=== PATIENT | female | born 1980 | race Caucasian/White ===

== ENCOUNTER → 2017-09-16 | Outpatient (CLI) | payer BC ==
[2017-09-16 10:42] LABS: BASO # 0.1 10^3/uL (0.0-0.2); BASO % 0.7 % (0.0-1.0); EOS # 0.3 10^3/uL (0.0-0.50); EOS % 3.2 % (0.0-3.0); IMMATURE GRANULOCYTE % 0.2 % (0-0); LYMPH # 2.8 10^3/uL (1.5-4.5); MEAN CORPUSCULAR HEMOGLOBIN 31.3 pg (27.0-33.0); MEAN CORPUSCULAR HGB CONC 34.3 g/dl (32.0-36.5); MEAN CORPUSCULAR VOLUME 91.3 fl (80.0-96.0); MONO # 0.5 10^3/uL (0.0-0.8); MONO % 5.4 % (0.0-5.0); NEUTROPHILS # 6.2 10^3/uL (1.8-7.7); NEUTROPHILS % 62.5 % (36.0-66.0); PLATELET COUNT, AUTOMATED 173 10^3/uL (150-450); RED CELL DISTRIBUTION WIDTH 12.8 % (11.5-14.5); WHITE BLOOD COUNT 9.9 10^3/uL (4.0-10.0)
[2017-09-16 11:12] LABS: ALBUMIN 3.8 GM/DL (3.2-5.2); ALBUMIN/GLOBULIN RATIO 1.31 (1.00-1.93); ALKALINE PHOSPHATASE 52 U/L (45-117); ALT/SGPT 16 U/L (12-78); ANION GAP 8 MEQ/L (8-16); AST/SGOT 9 U/L (7-37); BILIRUBIN,TOTAL 0.3 MG/DL (0.2-1.0); BLOOD UREA NITROGEN 8 MG/DL (7-18); CALCIUM LEVEL 8.1 MG/DL (8.5-10.1); CARBON DIOXIDE LEVEL 21 MEQ/L (21-32); CHLORIDE LEVEL 111 MEQ/L (98-107); CREATININE FOR GFR 0.82 MG/DL (0.55-1.02); FERRITIN 17 NG/ML (8-252); GLOMERULAR FILTRATION RATE > 60.0 (>60); GLUCOSE, FASTING 91 MG/DL (70-105); POTASSIUM SERUM 4.3 MEQ/L (3.5-5.1); SODIUM LEVEL 140 MEQ/L (136-145); T UPTAKE 36 % (30-39); THYROXINE (T4) 7.6 UG/DL (4.5-12.0); TOTAL PROTEIN 6.7 GM/DL (6.4-8.2)
[2017-09-16 11:35] LABS: ERYTHROCYTE SEDIMENTATION RATE 3 mm/hr (0-20)
[2017-09-18 02:09] LABS: Lyme Disease IgG/IgM Antibodie <0.91 ISR (0.00-0.90); Lyme Disease IgM Ab Quantitati <0.80 index (0.00-0.79)
[2017-09-20 13:23] LABS: ALBUMIN 4.23 GM/DL (3.29-5.55); ALBUMIN % 63.1 % (55.8-66.1); GAMMA GLOBULIN % 11.4 % (11.1-18.8)
== END ==
LOC: M LAB 09:54
PROVIDERS: ATTEND Physician Assistant Medical
DX: R53.83 Other fatigue (principal)

== ENCOUNTER → 2017-11-25 | Outpatient (REF) | payer BC ==
[2017-12-01 14:13] LABS: HPV HYBRID CAPTURE II Positive (Negative)
== END ==
LOC: M SFHCWAGY 10:20
DX: Z12.4 Encounter for screening for malignant neoplasm of cervix (principal)

== ENCOUNTER → 2018-12-03 | Outpatient (CLI) | payer BC ==
[2018-12-03 12:41] LABS: BASO # 0.1 10^3/uL (0.0-0.2); BASO % 0.8 % (0.0-1.0); EOS # 0.5 10^3/uL (0.0-0.50); EOS % 5.2 % (0.0-3.0); HEMOGLOBIN 14.1 g/dl (12.0-15.5); LYMPH # 3.2 10^3/uL (1.5-4.5); LYMPH % 37.1 % (24.0-44.0); MEAN CORPUSCULAR HEMOGLOBIN 30.9 pg (27.0-33.0); MEAN CORPUSCULAR HGB CONC 34.4 g/dl (32.0-36.5); MEAN CORPUSCULAR VOLUME 89.9 fl (80.0-96.0); MONO # 0.5 10^3/uL (0.0-0.8); MONO % 6.2 % (0.0-5.0); NEUTROPHILS # 4.4 10^3/uL (1.8-7.7); NEUTROPHILS % 50.4 % (36.0-66.0); PLATELET COUNT, AUTOMATED 196 10^3/uL (150-450); RED BLOOD COUNT 4.56 10^6/uL (4.00-5.40); WHITE BLOOD COUNT 8.7 10^3/uL (4.0-10.0)
[2018-12-03 13:15] LABS: ALBUMIN 3.8 GM/DL (3.2-5.2); ALT/SGPT 23 U/L (12-78); BILIRUBIN,TOTAL 0.3 MG/DL (0.2-1.0); BLOOD UREA NITROGEN 9 MG/DL (7-18); CALCIUM LEVEL 8.3 MG/DL (8.5-10.1); CARBON DIOXIDE LEVEL 26 MEQ/L (21-32); CHLORIDE LEVEL 109 MEQ/L (98-107); CHOLESTEROL LEVEL 250 MG/DL (<200); CHOLESTEROL RISK RATIO 5.555 (<5); CREATININE FOR GFR 0.86 MG/DL (0.55-1.30); FREE T4 0.89 NG/DL (0.76-1.46); GLOMERULAR FILTRATION RATE > 60.0 (>60); GLUCOSE, FASTING 84 MG/DL (70-100); HDL CHOLESTEROL 45 MG/DL (>40); LDL CHOLESTEROL 165 MG/DL (<100); NON-HDL-C 205 MG/DL; POTASSIUM SERUM 4.5 MEQ/L (3.5-5.1); SODIUM LEVEL 140 MEQ/L (136-145); TOTAL PROTEIN 6.7 GM/DL (6.4-8.2); TRIGLYCERIDES LEVEL 198 MG/DL (<150)
[2018-12-05 10:52] LABS: LUTEINIZING HORMONE 3.2 mIU/mL; PROLACTIN 8.6 NG/ML; TESTOSTERONE 20 NG/DL (14-76)
[2018-12-05 10:53] LABS: FOLLICLE STIMULATING HORMONE 4.2 mIU/mL
[2018-12-06 08:06] LABS: SEX HORMONE BINDING GLOBULIN 39.4 nmol/L (24.6-122.0)
[2018-12-06 16:21] LABS: INSULIN LEVEL 14.2 uIU/mL (2.6-24.9)
== END ==
LOC: M LAB 11:35
PROVIDERS: ATTEND Nurse Practitioner
DX: R53.83 Other fatigue (principal); R63.5 Abnormal weight gain; N92.6 Irregular menstruation, unspecified

== ENCOUNTER 2019-08-21 20:43 | Emergency (ER) | payer BC ==
[~2019-08-21] VITALS: Ht 162.6 cm; Wt 86.4 kg
[2019-08-21 21:43] LABS: HEMATOCRIT 42.1 % (36.0-47.0); HEMOGLOBIN 14.4 g/dl (12.0-15.5); MEAN CORPUSCULAR HEMOGLOBIN 31.3 pg (27.0-33.0); MEAN CORPUSCULAR HGB CONC 34.2 g/dl (32.0-36.5); MEAN CORPUSCULAR VOLUME 91.5 fl (80.0-96.0); PLATELET COUNT, AUTOMATED 179 10^3/uL (150-450); WHITE BLOOD COUNT 13.1 10^3/uL (4.0-10.0)
[2019-08-21 21:55] LABS: INR 0.98; PARTIAL THROMBOPLASTIN TIME 29.4 SECONDS (25.0-38.4); PROTHROMBIN TIME 12.6 SECONDS (11.8-14.0)
[2019-08-21 21:59] LABS: ATYPICAL LYMPH 2 % (0-5); EOSINOPHILS 2 % (0-3); LYMPHOCYTES 32 % (16-44); MONOCYTES 5 % (0-5); NEUTROPHILS 59 % (28-66); PLATELET ESTIMATE NORMAL (NORMAL)
[2019-08-21 22:07] LABS: ALBUMIN 3.8 GM/DL (3.2-5.2); ALT/SGPT 34 U/L (12-78); BILIRUBIN,DIRECT < 0.1 MG/DL (0.0-0.2); BILIRUBIN,TOTAL 0.1 MG/DL (0.2-1.0); BLOOD UREA NITROGEN 14 MG/DL (7-18); CALCIUM LEVEL 9.2 MG/DL (8.5-10.1); CARBON DIOXIDE LEVEL 22 MEQ/L (21-32); CHLORIDE LEVEL 107 MEQ/L (98-107); CK-MB VALUE MASS < 1.0 NG/ML (<3.6); CPK CREATINE PHOSPHOKINASE 65 U/L (26-192); CREATININE FOR GFR 1.08 MG/DL (0.55-1.30); FREE T4 0.81 NG/DL (0.76-1.46); GLOMERULAR FILTRATION RATE > 60.0 (>60); GLUCOSE, FASTING 120 MG/DL (70-100); LIPASE 123 U/L (73-393); MB/CK RELATIVE INDEX 1.54 (< OR =4); POTASSIUM SERUM 4.1 MEQ/L (3.5-5.1); SODIUM LEVEL 140 MEQ/L (136-145); TOTAL PROTEIN 6.9 GM/DL (6.4-8.2); TROPONIN I < 0.02 NG/ML (< 0.10)
[2019-08-21] MEDS ORDERED: IPRATROPIUM 0.5MG/ALBUTEROL 2.5MG INH SOL UD 3ML (DUONEB)(J7620) NEB ONE (23:00)
[2019-08-21] MEDS ORDERED: ALBUTEROL SULFATE 2.5 MG/0.5 ML INH NEB SOLN INH ONE (23:00)
[2019-08-21] MEDS ORDERED: GI COCKTAIL 50ML BTL(HYOSCYAMINE/MAALOX/LIDOCAINE VISCOUS)(1:3:1) PO ONE (23:00)
[2019-08-21] MEDS ORDERED: ISOVUE-370 76% 100ML VIAL (Q9967) As Ordered ONE (23:06)
--- NOTE | 2019-08-22 00:46 | REPVR ---
PROCEDURE INFORMATION: Exam: CT Angiography Chest With Contrast Exam date and time: 08/21/19 (11:59pm) Clinical history: 38 year old female with chest pain TECHNIQUE: Imaging protocol: Computed tomographic angiography of the chest with intravenous contrast. 3D rendering: MIP reconstructed images were created and reviewed. Radiation optimization: All CT scans at this facility use at least one of these dose optimization techniques: automated exposure control; mA and/or kV adjustment per patient size (includes targeted exams where dose is matched to clinical indication); or iterative reconstruction. Contrast material: Isovue 370 Contrast volume: 75 ml Contrast route: IV COMPARISON: Chest films of 08/21/19 FINDINGS: Pulmonary arteries: Normal. No pulmonary emboli. Aorta: Unremarkable. No aortic aneurysm. No aortic dissection. Lungs: No masses. Mildly hazy lung hanson. No consolidation. Pleural space: Unremarkable. No pneumothorax. No pleural effusions. Heart: Unremarkable. No cardiomegaly. No pericardial effusion. Lymph nodes: Unremarkable. No enlarged lymph nodes. Bones/joints: Unremarkable. No acute fracture. Soft tissues: Unremarkable. IMPRESSION: Mildly hazy lung hanson -- perhaps hypoventilatory changes, eg. No filling defects suspicious for pulmonary emboli are seen. There is no CT evidence of aortic dissection nor leakage. No aortic aneurysm is appreciated. There Electronically signed by: Isis Cuello On 08/22/2019 00:46:04 AM
[2019-08-22] MEDS ORDERED: PROAAER10 INH (00:56)
[2019-08-22] MEDS ORDERED: PRED20TA PO (00:56)
[2019-08-22] MEDS ORDERED: dexameTHASONE 20 MG/5 ML VIAL (J1100) IV ONE (01:00)
[2019-08-22 01:40] LABS: CK-MB VALUE MASS < 1.0 NG/ML (<3.6); CPK CREATINE PHOSPHOKINASE 52 U/L (26-192); MB/CK RELATIVE INDEX 1.92 (< OR =4); TROPONIN I < 0.02 NG/ML (< 0.10)
[2019-08-22 02:00] VITALS: BP 104/64
--- NOTE | 2019-08-22 02:50 | REP ---
Clinical: Chest pain . Comparison: 03/28/2008 . Technique: PA and lateral. Findings: The mediastinum and cardiac silhouette are normal. The lung hanson are clear and without acute consolidation, effusion, or pneumothorax. The skeletal structures are intact and normal. Impression: 1. No acute cardiopulmonary process. Electronically Signed by Jaime Little MD 08/22/2019 02:41 A
--- NOTE | 2019-08-22 07:42 | ECGEPIP ---
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
--- NOTE | 2019-08-22 07:45 | ECGEPIP ---
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
== END 2019-08-22 02:18 | disposition home or self-care (01) ==
LOC: M ED 20:43
DX: J45.909 Unspecified asthma, uncomplicated (principal); Z87.442 Personal history of urinary calculi; F17.210 Nicotine dependence, cigarettes, uncomplicated
CPT/HCPCS: 71046; 71275; 80048; 80076; 82550; 82553; 83690; 84439; 84443; 84484; 85025; 85610; 85730; 93005; 93041; 94640; 94760; 96374; 99285; J1100; Q9967

== ENCOUNTER → 2020-03-05 | Outpatient (CLI) | payer BC ==
[~2020-03-05] MED LIST: PRED20TA PO; PROAAER10 INH
== END ==
LOC: M PLALAB 14:18
PROVIDERS: ATTEND Internal Medicine
DX: M53.3 Sacrococcygeal disorders, not elsewhere classified (principal)

== ENCOUNTER → 2020-06-04 | Outpatient (CLI) | payer BC ==
--- NOTE | 2020-06-04 12:46 | REPVR ---
PROCEDURE INFORMATION: Exam: MR Lumbar Spine Without Contrast. Exam date and time: 06/04/2020 7:37 AM Age: 39 years old Clinical indication: Low back pain; Additional info: Lbp TECHNIQUE: Imaging protocol: Multiplanar magnetic resonance images of the lumbar spine without intravenous contrast. COMPARISON: No relevant prior studies available. FINDINGS: Vertebrae: There is no fracture or listhesis. Spinal cord: Normal signal. No cord compression. L1-L2: There is shallow disc bulging. There is mild facet hypertrophy. The spinal canal and neural foramina are patent. L2-L3: There is shallow disc bulging. There is mild facet hypertrophy. Spinal canal and neural foramina are patent. L3-L4: There is diffuse disc bulging with a central component and annular tear. There is mild facet hypertrophy. There mild bilateral neural foraminal narrowing. L4-L5: There is diffuse disc bulging. There is mild facet hypertrophy. There is mild bilateral neural foraminal narrowing. L5-S1: There is shallow disc bulging. There is mild facet hypertrophy. There is mild bilateral neural foraminal narrowing. Soft tissues: Unremarkable. Other: There atrophy of the right kidney. IMPRESSION: Degenerative disc disease and spondylosis. Changes contribute to multilevel mild neural foraminal narrowing. Electronically signed by: Roberta Baker On 06/04/2020 12:46:26 PM
== END ==
LOC: M RAD 06:32
PROVIDERS: ATTEND Internal Medicine Rheumatology
DX: M51.16 Intervertebral disc disorders with radiculopathy, lumbar region (principal); M47.816 Spondylosis without myelopathy or radiculopathy, lumbar region

== ENCOUNTER → 2021-07-02 | Outpatient (CLI) | payer BC ==
--- NOTE | 2021-07-02 11:35 | PFTRPT ---
Site: [facility], [address] [place] [address], [id number] ID: [id number] Name: TYSHAWN ALICIA Visit Date: 07/02/2021 Second ID: [id number] Referring Doctor: DO Villegas Kenneth Reviewing Doctor: Dar Talamantes MD Personal Assistant: Sawyer MEDEROS RRT Age: 40 : 1980 Sex: Female Race: Height: 64.50 Inches Weight: 196.00 Lbs BSA: 1.95 Order IDs: [id number] Requested Test(s): <RESP-PFT.PFT B/A> Diagnosis: J45.30 test meet the ATS standards for acceptability and repeatability. Pt was given four puffs of albuterol for post bronchodilator. Review Status: Not Reviewed Pre-Bronch Post-Bronch Pred Actual %Pred Actual %Chng SPIROMETRY FVC (L) 3.74 3.57 95 3.62 1 FEV1 (L) 3.03 2.72 89 2.77 1 FEV1/FVC (%) 82 76 92 77 FEF 25% (L/sec) 5.47 6.03 110 6.17 2 FEF 50% (L/sec) 4.16 2.85 68 3.01 5 FEF 75% (L/sec) 1.63 0.84 51 0.92 8 FEF 25-75% (L/sec) 3.10 2.19 70 2.35 7 FEF Max (L/sec) 7.02 6.42 91 7.22 12 FIVC (L) 3.54 3.63 2 FIF 50% (L/sec) 4.03 6.94 172 6.33 -8 FIF Max (L/sec) 6.97 6.37 -8 MVV (L/min) 103 102 98 Expiratory Time (sec) 7.40 7.32 -1 Back Extrap Vol (L) 0.13 0.11 -10 Time To FEFmax (sec) 0.099 0.072 -26 LUNG VOLUMES SVC (L) 3.49 3.64 104 IC (L) 2.29 2.85 124 ERV (L) 1.20 0.79 65 TGV (L) 2.84 3.32 117 RV (Pleth) (L) 1.64 2.53 154 TLC (Pleth) (L) 5.13 6.18 120 RV/TLC (Pleth) (%) 32 41 128 DIFFUSION DLCOunc (ml/min/mmHg) 23.87 19.93 83 DL/VA (ml/min/mmHg/L) 4.65 3.79 81 VA (L) 5.13 5.26 102 BHT (sec) 9.62 IVC (L) 3.61 TLC (SB) (L) 5.41 AIRWAYS RESISTANCE Raw (cmH2O/L/s) 1.86 0.94 50 Gaw (L/s/cmH2O) 1.03 1.08 105 sRaw (cmH2O*s) 4.76 3.21 67 sGaw (1/cmH2O*s) 0.20 0.32 159
== END ==
LOC: M CARPUL 10:59
PROVIDERS: ATTEND Family Medicine
DX: J45.30 Mild persistent asthma, uncomplicated (principal)

== ENCOUNTER → 2022-04-07 | Outpatient (CLI) | payer BC ==
[2022-04-07 11:49] LABS: BASO # 0.1 10^3/uL (0.0-0.2); BASO % 0.6 % (0.0-1.0); EOS # 0.2 10^3/uL (0.0-0.5); EOS % 2.1 % (0.0-3.0); HEMATOCRIT 42.1 % (36.0-47.0); HEMOGLOBIN 14.2 g/dl (12.0-15.5); LYMPH # 3.7 10^3/uL (1.5-5.0); LYMPH % 38.7 % (24.0-44.0); MEAN CORPUSCULAR HEMOGLOBIN 30.4 pg (27.0-33.0); MEAN CORPUSCULAR HGB CONC 33.7 g/dl (32.0-36.5); MEAN CORPUSCULAR VOLUME 90.1 fl (80.0-96.0); MONO # 0.7 10^3/uL (0.0-0.8); MONO % 7.3 % (2.0-8.0); NEUTROPHILS # 4.8 10^3/uL (1.5-8.5); NEUTROPHILS % 50.9 % (36.0-66.0); PLATELET COUNT, AUTOMATED 189 10^3/uL (150-450); RED BLOOD COUNT 4.67 10^6/uL (4.00-5.40); WHITE BLOOD COUNT 9.5 10^3/uL (4.0-10.0)
[2022-04-07 12:13] LABS: HEMOGLOBIN A1c 5.4 %
[2022-04-07 12:19] LABS: ERYTHROCYTE SEDIMENTATION RATE 5 mm/hr (0-20)
[2022-04-07 12:36] LABS: ALBUMIN 3.6 GM/DL (3.2-5.2); ALT/SGPT 35 U/L (12-78); BILIRUBIN,TOTAL 0.3 MG/DL (0.2-1.0); BLOOD UREA NITROGEN 10 MG/DL (7-18); CALCIUM LEVEL 9.1 MG/DL (8.5-10.1); CARBON DIOXIDE LEVEL 25 MEQ/L (21-32); CHLORIDE LEVEL 107 MEQ/L (98-107); GLOMERULAR FILTRATION RATE > 60.0 (>58); GLUCOSE, FASTING 96 MG/DL (70-100); POTASSIUM SERUM 4.3 MEQ/L (3.5-5.1); RHEUMATOID FACTOR QUANT < 10.0 IU/ML (<15.0); SODIUM LEVEL 137 MEQ/L (136-145); TOTAL PROTEIN 6.8 GM/DL (6.4-8.2)
[2022-04-07 13:24] LABS: VITAMIN B12 LEVEL 507 PG/ML
[2022-04-07 13:25] LABS: FOLATE 8.9 NG/ML
== END ==
LOC: M LAB 11:08
PROVIDERS: ATTEND Psychiatry & Neurology Neurology
DX: G62.9 Polyneuropathy, unspecified (principal)

== ENCOUNTER → 2022-07-02 | Outpatient (CLI) | payer BC | LOC: M WHC 14:04 | PROVIDERS: ATTEND Internal Medicine | DX: Z12.31 Encounter for screening mammogram for malignant neoplasm of breast (principal) ==

== ENCOUNTER → 2022-07-15 | Outpatient (CLI) | payer BC | LOC: M LAB 15:30 | PROVIDERS: ATTEND Psychiatry & Neurology Neurology | DX: A69.20 Lyme disease, unspecified (principal) ==

== ENCOUNTER → 2022-11-17 | Outpatient (CLI) | payer BC ==
[2022-11-17 15:45] LABS: HEMATOCRIT 43.8 % (36.0-47.0); HEMOGLOBIN 14.8 g/dl (12.0-15.5); MEAN CORPUSCULAR HEMOGLOBIN 31.3 pg (27.0-33.0); MEAN CORPUSCULAR HGB CONC 33.8 g/dl (32.0-36.5); MEAN CORPUSCULAR VOLUME 92.6 fl (80.0-96.0); PLATELET COUNT, AUTOMATED 175 10^3/uL (150-450); RED BLOOD COUNT 4.73 10^6/uL (4.00-5.40); WHITE BLOOD COUNT 9.1 10^3/uL (4.0-10.0)
[2022-11-17 15:53] LABS: HEMOGLOBIN A1c 5.4 % (4.0-6.0)
[2022-11-17 16:06] LABS: ALBUMIN 3.9 G/DL (3.2-5.2); ALKALINE PHOSPHATASE 54 U/L (46-116); ALT/SGPT 21 U/L (7.0-40); AST/SGOT < 8 U/L (<34); BILIRUBIN,TOTAL 0.4 MG/DL (0.3-1.2); BLOOD UREA NITROGEN 10 MG/DL (9-23); CALCIUM LEVEL 9.6 MG/DL (8.5-10.1); CARBON DIOXIDE LEVEL 27 MMOL/L (20-31); CHLORIDE LEVEL 107 MMOL/L (98-107); CREATININE FOR GFR 0.86 MG/DL (0.55-1.30); GLOMERULAR FILTRATION RATE > 60.0 (>58); GLUCOSE, FASTING 88 MG/DL (60-100); POTASSIUM SERUM 4.4 MMOL/L (3.5-5.1); SODIUM LEVEL 137 MMOL/L (136-145); TOTAL PROTEIN 6.6 G/DL (5.7-8.2)
== END ==
LOC: M LAB 14:29
PROVIDERS: ATTEND Internal Medicine
DX: R73.01 Impaired fasting glucose (principal); J45.909 Unspecified asthma, uncomplicated

== ENCOUNTER → 2024-09-08 | Outpatient (CLI) | payer BC | LOC: M SOG 07:56 | PROVIDERS: ATTEND Physician Assistant | DX: M84.84 Other disorders of continuity of bone, hand (principal) ==